=== PATIENT | female | born 1970 | race Two or more races ===

== ENCOUNTER 2025-03-28 00:38 | Emergency (ER) | payer OTHER, SELFPAY ==
[2025-03-28 00:40] VITALS: BMI 29.0
--- NOTE | 2025-03-28 00:40 | EKG_ITS ---
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
--- NOTE | 2025-03-28 00:44 | XR_ITS ---
Examination: PA lateral chest 2 views Technique: Upright PA lateral chest 2 views Date and time: March 28, 2025, 0117 hrs. Indications: Chest pain shortness of breath beginning 2 weeks ago Findings: Normal heart size. Lungs are clear. Osseous structures are intact. Impression: No active disease.
[2025-03-28 00:46] VITALS: BP 133/86; PULSE 70; RESP 18; TEMP 37.2; O2SAT 97
[2025-03-28 01:02] LABS: Collection Type, Urine Clean Catch
[2025-03-28 01:08] LABS: HCG Qualitative,Urine Negative
[2025-03-28 01:16] LABS: Bacteria,Urine Rare; Bilirubin,Urine Negative (Negative); Blood,Urine Negative (Negative); Clarity,Urine Clear (Clear/Hazy); Color,Urine Lt-Yellow (Lt Yel-Yel); Culture Indicated,Urine Not Indicated; Glucose, Urine Negative (Negative); Ketones,Urine Negative (Negative); Leukocyte Esterase,Urine Negative (Negative); Nitrite,Urine Negative (Negative); PH,Urine 5.5 (5.0-7.0); Protein,Urine Negative (Neg - Trace); RBC,Urine 1 /hpf (0-3); Specific Gravity,Urine 1.012 (1.001-1.035); Squamous Epithelial Cell,Urine 7 /hpf (0-5); Urobilinogen,Urine Negative mg/dL (0.0-1.0); WBC,Urine 2 /hpf (0-5)
[2025-03-28 01:35] LABS: Basophils # (Auto) 0.0 Thou/mm3 (0.0-0.2); Basophils % (Auto) 1 % (0-2.5); Eosinophils # (Auto) 0.1 Thou/mm3 (0.0-0.5); Eosinophils % (Auto) 3 % (0-10); Hematocrit 39.5 % (36.0-46.0); Hemoglobin 12.8 g/dL (12.0-16.0); Immature Granulocytes Auto 0.03 Thou/mm3 (0.00-0.00); Lymphocytes # (Auto) 1.4 Thou/mm3 (1.0-4.8); Lymphocytes % (Auto) 27 % (10-50); Mean Corpuscular HGB Conc 32.4 g/dl (31.0-37.0); Mean Corpuscular Hemoglobin 26.8 pg (25.0-35.0); Mean Corpuscular Volume 83 fL (80-100); Monocytes # (Auto) 0.5 Thou/mm3 (0.0-0.8); Monocytes % (Auto) 9 % (0-12); Neutrophils # (Auto) 3.2 Thou/mm3 (1.8-7.7); Neutrophils % (Auto) 61 % (37-80); Nucleated Red Blood Cell # 0.00 Thou/mm3 (0.00-0.00); Nucleated Red Blood Cell % 0 /100 WBC (0); Platelet Count 224 Thou/mm3 (140-440); RDW Standard Deviation 42.7 fL (36.4-46.3); Red Blood Count 4.77 Miln/mm3 (4.00-5.20); White Blood Count 5.2 Thou/mm3 (3.6-11.0)
--- NOTE | 2025-03-28 01:46 | EDRME_ITS ---
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 Patient denies URI symptoms. Chief Complaint: Chest Pain Vital signs: Vital Signs Temperature 98.9 F 03/28/25 00:46 Pulse Rate 70 03/28/25 00:46 Respiratory Rate 18 03/28/25 00:46 Blood Pressure 133/86 H 03/28/25 00:46 Pulse Oximetry (%) 97 03/28/25 00:46 Oxygen Delivery Method Room Air 03/28/25 00:46
[2025-03-28 01:53] LABS: B-Type Natriuretic Peptide < 20 pg/mL (0-100)
[2025-03-28 01:55] LABS: Alanine Aminotransferase 18 U/L (10-49); Albumin, Serum 4.2 gm/dL (3.5-5.0); Albumin/Globulin Ratio 1.7 (1.2-2.2); Alkaline Phosphatase 90 U/L (46-116); Anion Gap 11 (7-16); Aspartate Amino Transferase 29 U/L (0-34); BUN/Creatinine Ratio 14 Ratio (12-20); Bilirubin,Total 0.3 mg/dL (0.3-1.2); Blood Urea Nitrogen 11 mg/dL (9-23); Calcium 9.2 mg/dL (8.3-10.6); Calcium (Corrected) 9.2 mg/dL (8.5-10.1); Carbon Dioxide 26.1 mMol/L (20.0-31.0); Chloride 109 mMol/L (98-107); Creatinine (Component) 0.8 mg/dL (0.6-1.3); Estimated Creatinine Clearance 87.6 mL/min (>60); Globulin 2.5 gm/dL (2.3-3.5); Glucose 102 mg/dL (74-106); Lipase 60 U/L (12-53); Osmolality,Calculated 289 (275-295); Potassium 4.3 mMol/L (3.4-5.1); Sodium 146 mMol/L (136-145); Total Protein 6.7 gm/dL (5.7-8.2); Troponin I < 0.002 ng/mL (0.0-0.045); eGFR > 60 See Note
--- NOTE | 2025-03-28 03:52 | EDNOTE_ITS ---
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 Patient denies URI symptoms. Dr. Cazares?s Main ED Evaluation: 54yo female with a history of follicular lymphoma, HLD presents to the ED for a chief complaint of intermittent chest heaviness and shortness of breath for the last 2 weeks. No aggravating or alleviating factors. No radiation or migration of her pain. Patient denies any cough, fever, chills, or any other associated symptoms. NKA. Related Data Allergies Allergy/AdvReac Type Severity Reaction Status Date / Time No Known Allergies Allergy Verified 03/28/25 00:40 Review of Systems Review of Systems Systems Reviewed: All systems reviewed, normal except as documented ED Exam Narrative Physical exam: Generally the patient is alert and in no obvious distress, heart regular rate and rhythm, lungs clear to auscultation equal bilaterally, abdomen soft bowel sounds present nondistended nontender, neurologic exam no ataxia without focal d eficit. Essie Coma Scale is 15., Skin is warm pale and dry, extremities show no edema Course Course Course Narrative: CXR is ordered for determining the etiology of chest pain. Quality Measures none Orders Category Date Time Status EKG (ED ONLY) *Do not use* NOW Care 03/28/25 00:40 Completed EKG (ED Only) Stat Exams 03/28/25 00:40 Draft XR chest 2V Stat Exams 03/28/25 00:44 Taken BNP [B-Type Natriuretic Peptide] Stat Lab 03/28/25 01:18 Completed CBC Stat Lab 03/28/25 01:18 Completed CMP [Comprehensive Metabolic Panel] Stat Lab 03/28/25 01:18 Completed HCG Qualitative,Urine Stat Lab 03/28/25 00:55 Completed Lipase Stat Lab 03/28/25 01:18 Completed Troponin I Stat Lab 03/28/25 01:18 Completed Troponin I Stat Lab 03/28/25 03:36 Completed UA, C/S IF [Urinalysis, C/S if Indicated] Stat Lab 03/28/25 00:55 Completed Vital Signs Vital signs: Vital Signs Temperature 98.9 F 09/06/25 00:46 Pulse Rate 70 03/28/25 00:46 Respiratory Rate 18 03/28/25 00:46 Blood Pressure 133/86 H 03/28/25 00:46 Pulse Oximetry (%) 97 03/28/25 00:46 Oxygen Delivery Method Room Air 03/28/25 00:46 Chest Pain MDM Narrative MDM Narrative:: Scribe Attestation: 03/28/25 - Joanne Muñoz am scribing for and in the presence of Dr. Cazares. Differential diagnosis: Noncardiac chest pain, musculoskeletal pain, acute coronary syndrome I interpreted all labs. 2 separate troponins are not elevated. EKG is nonischemic. Chest x-ray is normal. Patient stable for discharge home to follow-up with primary care for further treatment and evaluation. Return to ER as needed or if condition worsens. Heart score is 1. Patient data External records reviewed:: [facility] previous records (Per chart review, patient has no previous ED visits or admissions to this facility.) Clinical information provided by:: patient Social determinants that could affect healthcare access:: none Patient has the following chronic illnesses:: follicular lymphoma, HLD How is presenting disease/condition affected by chronic disease/condition?: uneffected by Evaluation data The following diagnostics were reviewed and interpreted by me:: lab results, radiology exam(s) and EKG tracing(s) Lab and/or radiology exams considered but not ordered:: none Interpretation Summary: See MDM. Medications / Prescriptions Medications or Prescriptions considered but not ordered:: none Medication administrations:: none Consultations Consultation(s) initiated? (list below): No Diagnosis Chest Pain Differential Diagnosis: other (See MDM) Most likely diagnosis given after review of the tests above:: see clinical impression below Admission Indicated Admission indicated?: not indicated Admission Request Was there a request for admission?: No Disposition Plan Disposition Plan: Discharge Discharge Attestation Discharge Attestation: The patient and all family members were given an opportunity to ask questions and understood the discharge instructions. Discharge instructions specifically effects, indications for sooner follow up or return to the emergency department, and the expected course of current diagnosis. Patient condition: Stable Discharge Plan Plan Patient Disposition: HOME (Self Care) Prescriptions/Referrals Referrals: Adrian Jean MD [Primary Care Provider, Nephrology] - In 1 week Problem List Clinical Impression: Chest pain Patient/Caregiver Discharge Instructions Education Materials: ED Chest Pain, Uncertain Cause Additional Instructions: Follow-up with your doctor for further treatment and evaluation. Return to ER as needed or if condition worsens. Print Language: Mongolian Stand Alone Forms: [facility] Award Info., Patient Portal Info Letter
[2025-03-28 03:56] VITALS: BP 162/96; PULSE 82; RESP 84; O2SAT 100
[2025-03-28 04:01] LABS: Troponin I < 0.002 ng/mL (0.0-0.045)
== END 2025-03-28 04:10 | disposition home or self-care (01) ==
PROVIDERS: Emergency Provider Emergency Medicine; PCP Internal Medicine
DX: R07.9 Chest pain, unspecified (principal); R06.02 Shortness of breath; Z85.72 Personal history of non-Hodgkin lymphomas
CPT/HCPCS: 36415; 71046; 80053; 81001; 81025; 83690; 83880; 84484; 85025; 93005; 99283

== ENCOUNTER → 2025-04-14 | Outpatient (CLI) | payer OTHER, SELFPAY ==
[2025-04-14 12:07] LABS: Basophils # (Auto) 0.1 Thou/mm3 (0.0-0.2); Basophils % (Auto) 1 % (0-2.5); Eosinophils # (Auto) 0.1 Thou/mm3 (0.0-0.5); Eosinophils % (Auto) 2 % (0-10); Hematocrit 40.2 % (36.0-46.0); Hemoglobin 12.8 g/dL (12.0-16.0); Immature Granulocytes Auto 0.03 Thou/mm3 (0.00-0.00); Lymphocytes # (Auto) 1.2 Thou/mm3 (1.0-4.8); Lymphocytes % (Auto) 23 % (10-50); Mean Corpuscular HGB Conc 31.8 g/dl (31.0-37.0); Mean Corpuscular Hemoglobin 26.7 pg (25.0-35.0); Mean Corpuscular Volume 84 fL (80-100); Monocytes # (Auto) 0.4 Thou/mm3 (0.0-0.8); Monocytes % (Auto) 7 % (0-12); Neutrophils # (Auto) 3.7 Thou/mm3 (1.8-7.7); Neutrophils % (Auto) 67 % (37-80); Nucleated Red Blood Cell # 0.00 Thou/mm3 (0.00-0.00); Nucleated Red Blood Cell % 0 /100 WBC (0); Platelet Count 238 Thou/mm3 (140-440); RDW Standard Deviation 42.3 fL (36.4-46.3); Red Blood Count 4.80 Miln/mm3 (4.00-5.20); White Blood Count 5.5 Thou/mm3 (3.6-11.0)
[2025-04-14 12:27] LABS: Cardiac Risk Estimate 3.6 RATIO (3.7-5.6); Cholesterol 153 mg/dL (132-200); HDL Cholesterol 42 mg/dL (40-60); LDL Cholesterol,Calculated 90 mg/dL (0-130); Thyroid Stimulating Hormone 5.73 uIU/mL (0.55-4.78); Triglycerides 106 mg/dL (30-150)
== END | disposition home or self-care (01) ==
LOC: COPL 11:19
PROVIDERS: PCP Internal Medicine; Referring Provider Internal Medicine; Visit Provider Internal Medicine
DX: E78.5 Hyperlipidemia, unspecified (principal)
CPT/HCPCS: 36415; 80061; 84443; 85025

== ENCOUNTER → 2025-04-27 | Outpatient (CLI) | payer OTHER, SELFPAY ==
--- NOTE | 2025-04-27 13:45 | XR_ITS ---
Examination: Screening digital mammography, bilateral Computer aided detection 3-D breast Tomosynthesis, bilateral Date and time of exam: April 27, thousand 25, 1356 hours, no priors, Indication: Screening Technique: Nonmagnified MLO, CC views of the breasts to been obtained, reconstructed from 3-D Tomosynthesis images. R2 computer aided detection program utilized for evaluation of suspicious masses and/or abnormal calcifications. 3-D Tomosynthesis images obtained. Findings: The breasts are heterogeneously dense, which may obscure small masses 14 mm nodule upper outer right breast posterior depth Impression: BI-RADS Category 0: Incomplete: Need additional imaging evaluation Recommend follow-up spot tomographic views of 14 mm nodule upper outer right breast as well as bilateral breast sonography to complete the workup..
== END | disposition home or self-care (01) ==
LOC: CDIM 13:31
PROVIDERS: PCP Internal Medicine; Referring Provider Internal Medicine; Visit Provider Internal Medicine
DX: Z12.31 Encounter for screening mammogram for malignant neoplasm of breast (principal); N63.11 Unspecified lump in the right breast, upper outer quadrant; R92.8 Other abnormal and inconclusive findings on diagnostic imaging of breast
CPT/HCPCS: 77063; 77067

== ENCOUNTER → 2025-05-26 | Outpatient (CLI) | payer OTHER, SELFPAY ==
--- NOTE | 2025-05-26 11:00 | XR_ITS ---
Examination: Transvaginal ultrasound of the pelvis, complete Technique: Transvaginal sonographic images pelvis performed using boyd scale imaging Exam date and time: May 26, 2025, 1102 hours INDICATIONS: Postmenopausal bleeding episodes beginning 3 days ago. FINDINGS: Uterus 6.1 cm uterine fundal area fibroid degeneration 8 x 5 x 9 mm Endometrial stripe 0.3 cm Right ovary 2.2 cm arterial flow Left ovary 2.5 cm arterial flow IMPRESSION: Small area of uterine fibroid degeneration 8 x 5 x 9 mm Endometrial site 0.3 cm If postmenopausal bleeding persists, consider MRI pelvis pre and post contrast follow-up.
[2025-05-26 12:23] LABS: Collection Type, Urine Clean Catch
[2025-05-26 13:56] LABS: Basophils # (Auto) 0.0 Thou/mm3 (0.0-0.2); Basophils % (Auto) 1 % (0-2.5); Eosinophils # (Auto) 0.1 Thou/mm3 (0.0-0.5); Eosinophils % (Auto) 2 % (0-10); Hematocrit 40.7 % (36.0-46.0); Hemoglobin 13.0 g/dL (12.0-16.0); Immature Granulocytes Auto 0.03 Thou/mm3 (0.00-0.00); Lymphocytes # (Auto) 1.6 Thou/mm3 (1.0-4.8); Lymphocytes % (Auto) 26 % (10-50); Mean Corpuscular HGB Conc 31.9 g/dl (31.0-37.0); Mean Corpuscular Hemoglobin 26.1 pg (25.0-35.0); Mean Corpuscular Volume 82 fL (80-100); Monocytes # (Auto) 0.3 Thou/mm3 (0.0-0.8); Monocytes % (Auto) 6 % (0-12); Neutrophils # (Auto) 3.9 Thou/mm3 (1.8-7.7); Neutrophils % (Auto) 65 % (37-80); Nucleated Red Blood Cell # 0.00 Thou/mm3 (0.00-0.00); Nucleated Red Blood Cell % 0 /100 WBC (0); Platelet Count 249 Thou/mm3 (140-440); RDW Standard Deviation 39.9 fL (36.4-46.3); Red Blood Count 4.99 Miln/mm3 (4.00-5.20); White Blood Count 6.0 Thou/mm3 (3.6-11.0)
[2025-05-26 14:02] LABS: Bacteria,Urine Rare; Bilirubin,Urine Negative (Negative); Blood,Urine Negative (Negative); Clarity,Urine Clear (Clear/Hazy); Color,Urine Lt-Yellow (Lt Yel-Yel); Glucose, Urine Negative (Negative); Ketones,Urine Negative (Negative); Leukocyte Esterase,Urine Positive (Negative); Nitrite,Urine Negative (Negative); PH,Urine 5.5 (5.0-7.0); Protein,Urine Negative (Neg - Trace); RBC,Urine 2 /hpf (0-3); Specific Gravity,Urine 1.016 (1.001-1.035); Squamous Epithelial Cell,Urine 16 /hpf (0-5); Urobilinogen,Urine Negative mg/dL (0.0-1.0); WBC,Urine 4 /hpf (0-5)
[2025-05-26 14:15] LABS: Alanine Aminotransferase 11 U/L (10-49); Albumin, Serum 4.5 gm/dL (3.5-5.0); Albumin/Globulin Ratio 2.0 (1.2-2.2); Alkaline Phosphatase 90 U/L (46-116); Anion Gap 9 (7-16); Aspartate Amino Transferase 18 U/L (0-34); BUN/Creatinine Ratio 13 Ratio (12-20); Bilirubin,Total 0.4 mg/dL (0.3-1.2); Blood Urea Nitrogen 10 mg/dL (9-23); Calcium 9.4 mg/dL (8.3-10.6); Calcium (Corrected) 9.4 mg/dL (8.5-10.1); Carbon Dioxide 26.2 mMol/L (20.0-31.0); Cardiac Risk Estimate 3.9 RATIO (3.7-5.6); Chloride 109 mMol/L (98-107); Cholesterol 146 mg/dL (132-200); Creatinine (Component) 0.8 mg/dL (0.6-1.3); Globulin 2.2 gm/dL (2.3-3.5); Glucose 94 mg/dL (74-106); HDL Cholesterol 37 mg/dL (40-60); LDL Cholesterol,Calculated 82 mg/dL (0-130); Osmolality,Calculated 285 (275-295); Potassium 4.2 mMol/L (3.4-5.1); Sodium 144 mMol/L (136-145); Thyroid Stimulating Hormone 1.74 uIU/mL (0.55-4.78); Total Protein 6.7 gm/dL (5.7-8.2); Triglycerides 135 mg/dL (30-150); eGFR > 60 See Note
== END | disposition home or self-care (01) ==
LOC: CDIM 12:01 → COPL 12:04
PROVIDERS: PCP Internal Medicine; Referring Provider Internal Medicine; Visit Provider Radiology Diagnostic Radiology
DX: N85.8 Other specified noninflammatory disorders of uterus (principal); E03.9 Hypothyroidism, unspecified; E78.5 Hyperlipidemia, unspecified
CPT/HCPCS: 36415; 76830; 80053; 80061; 81001; 84443; 85025

== ENCOUNTER → 2025-05-27 | Outpatient (CLI) | payer OTHER, SELFPAY ==
--- NOTE | 2025-05-27 09:00 | XR_ITS ---
Examination: Breast ultrasound complete, bilateral Date and time of exam: May 27, 2025, 0925 hours INDICATION: Right breast pain beginning 1 week ago Technique: Real-time grayscale ultrasonographic imaging bilateral breasts, including all 4 quadrants as well as nipple retroareolar and axillary regions. Findings: Sonographic images right breast 11:00 nodule lobular circumscribed margins 11 x 11 mm Sonographic images left breast 12:00 cyst 10 x 8 mm 2:00 nodule circumscribed 5 x 5 mm 4:00 nodule circumscribed 6 x 6 mm 8:00 nodule circumscribed 9 x 14 mm IMPRESSION: BI-RADS Category 3: Probably benign findings Continued 6-month bilateral breast sonography follow-up needed to document stability of nodules described above
--- NOTE | 2025-05-27 10:00 | XR_ITS ---
Examination: Diagnostic digital mammography, unilateral, right Computer aided detection 3-D breast Tomosynthesis, unilateral Date and time of exam: 05/27/2025, 9:16 a.m. Comparisons: 04/27/2025 Indications: Further evaluation of upper outer quadrant abnormality seen on prior screening exam. Technique: Nonmagnified MLO, CC views of the right breast have been obtained, reconstructed from 3-D Tomosynthesis images. R2 computer aided detection program utilized for evaluation of suspicious masses and/or abnormal calcifications. 3-D Tomosynthesis images obtained. Technologist: Findings: The breasts are heterogeneously dense, which may obscure small masses. Previously described abnormality does not persist on spot compression views and represents superposition of normal fibroglandular tissue. No evidence of abnormal masses or suspicious calcifications. Impression: BI-RADS category 1: Negative findings (within normal) Recommend 1 year follow-up mammogram
== END | disposition home or self-care (01) ==
PROVIDERS: PCP Internal Medicine; Referring Provider Internal Medicine; Visit Provider Internal Medicine
DX: R92.311 Mammographic fatty tissue density, right breast (principal); N63.21 Unspecified lump in the left breast, upper outer quadrant; N63.11 Unspecified lump in the right breast, upper outer quadrant; N63.24 Unspecified lump in the left breast, lower inner quadrant; N63.23 Unspecified lump in the left breast, lower outer quadrant
CPT/HCPCS: 76641; 77061; 77065; G0279

== ENCOUNTER 2025-06-10 09:47 | Outpatient (RCR) | payer OTHER, SELFPAY ==
--- NOTE | 2025-06-10 13:17 | CTCCONSULT_ITS ---
Patient: EVE WAITE : 1970 MR#: [id number] Page 2 of 2 CONSULTATION NOTE DATE OF CONSULTATION: 06/10/2025 NAME: EVE WAITE ACCOUNT: [id number] : 1970 AGE: 54 REFERRING PHYSICIAN: Adrian Jean MD PRIMARY PHYSICIAN: REASON FOR VISIT: Follicular lymphoma grade 2 ONCOLOGY HISTORY: DIAGNOSIS: Follicular lymphoma DATE OF DIAGNOSIS: 07/25/2023 STAGE/TNM: Grade 2 multiple lymph node sites on 1 side of diaphragm no involvement of spleen or lliver TREATMENT HISTORY: Care Plan Name Start Date Cycle Day Intent HISTORY OF PRESENT ILLNESS: 54-year-old female was being seen at [facility] in [facility]. Patient at that time was seen with history of thyroid cancer in 2005 status post thyroidectomy and MCELROY currently on levothyroxine prediabetes dyslipidemia and obesity. Patient was seen in the emergency room in June 2023 for complaints of abdominal pain and loose bowel movements patient underwent CT scan which showed evidence of 3 x 9 x 10 cm right lower quadrant soft tissue mass possibly conglomerate adenopathy additional small bowel mesenteric adenopathy was noted. Biopsy was completed which showed follicular low-grade lymphoma 08/07/[address] scan showed moderate to marked increased metabolic activity in diffuse intra-abdominal retroperitoneal pelvic lymphadenopathy no evidence of lymphoma about the diaphragm 09/23/[address] scan shows mild progression of lymphoma below the diaphragm and diffuse abdominal intra-abdominal retroperitoneal pelvic and mesenteric lymph nodes as compared to previous exam on 08/02/2023 no evidence of lymphoma involvement above the diaphragm no involvement of liver or spleen Deauville score is 5 CT-guided biopsy of the abdominal mass 07/25/2023 consistent with grade 1 and 2-3 follicular lymphoma with Ki-67 proliferation index of 5 to 10% OTHER MEDICAL HISTORY/CONDITIONS: Follicular Lymphoma - 2022 Hyperlipidemia Right breast cyst - since 2020 Thyroidectomy?-?2006 FAMILY HISTORY: Mother:?Uterine?-?dx?62 Cancer History:?Mat grandma - unknown; Mat cousin - breast-dx 50 SOCIAL HISTORY: 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 Tobacco?Use:?Denies ETOH?Use:?Denies Drug?Note:?Denies Social?History?Note:?Lives?wtih? 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 None Medications Last Reconciled by Ericka Turner RN on 06/10/2025 ALLERGIES: No Known Drug Allergies REVIEW OF SYSTEMS: A complete 14-point review of systems was performed and is negative except as noted in interval history. PHYSICAL EXAMINATION: VITAL SIGNS: B/P?152/92, Height?66?inches, Oxygen?Saturation?97% Weight?184?lbs PAIN: 2 - Mild pain ECOG Performance Status: 0 - Asymptomatic and fully active GENERAL APPEARANCE: Appears well, in no apparent distress, appropriately interactive. HEENT: Normocephalic, no temporal wasting, normal conjunctiva, no scleral icterus, normal hearing, lips without lesions, neck normal range of motion. CARDIOVASCULAR: Not assessed. PULMONARY: Normal respiratory effort, no respiratory distress or use of accessory muscles, speaking in full sentences, no tachypnea. EXTREMITIES: No pedal edema or cyanosis. SKIN: Normal skin appearance. NEUROLOGIC: Alert and oriented x4. PSHYCHIATRIC: Appropriate affect, mood normal, behavior normal, intact thought and speech. LABORATORY DATA: I have personally reviewed and interpreted each of the patient?s relevant lab tests, abnormal findings are below: Date Time ASSESSMENT/PLAN: Follicular lymphoma grade 2 multiple lymph nodes Large lymph node was 10 cm on the previous CT scans in the right lower quadrant of the abdomen Patient recently had colonoscopy and was negative Patient does complain of some dysphagia so we will send for EGD Patient do not have night sweats or other B symptoms like appetite changes or weight loss No abdominal symptoms Discussed with Ms. Waite starting treatment and symptomatic patients is recommended in follicular lymphoma We can do wait and watch until patient become symptomatic and patient agreed RTC in 6 months with imaging and labs ORDERS: Order # Description [id number] Uric Acid, Serum + Comprehensive Metabolic Panel - 12 + CBC with Auto Diff + Hep A, B and C panel [id number] Lactate Dehydrogenase (LDH) [id number] RETURN TO CLINIC: I reviewed the diagnosis, prognosis, and recommended treatment/procedure options with the patient (and/or their legal personnel representative), including the potential benefits, risks, side effects and alternative therapies. We also discussed the option of no treatment and the possibility of clinical trial participation, if applicable. All questions were addressed, and they demonstrated understanding. They provided informed consent to proceed with the proposed plan of care. BILLING AND COMPLIANCE: I reviewed external records from providers outside my specialty as summarized above. I spent a total of 50 minutes on this patient?s care on the day of their visit excluding time spent related to any billed procedures. This time includes time spent with the patient as well as time spent documenting in the medical record, reviewing patients records and tests, obtaining history, placing orders, communicating with other healthcare professionals, counseling the patient, family or caregiver, and/or care coordination for the diagnoses above. Electronically Signed by: Smith Mercado MD T: 1:14 PM CC: PCP: Referring: Adrian Jean This document was completed utilizing speech recognition software. Grammatical errors, random word insertions, pronoun errors, and incomplete sentences are an occasional consequence of this system due to software limitations, ambient noise, and hardware issues. Any formal questions or concerns about the content, text or information contained within the body of this dictation should be directly addressed to the provider for clarification.
== END 2025-06-21 23:59 | disposition home or self-care (01) ==
LOC: SCTC 09:47
PROVIDERS: PCP Internal Medicine; Referring Provider Internal Medicine; Visit Provider Internal Medicine Hematology & Oncology
DX: C82.13 Follicular lymphoma grade II, intra-abdominal lymph nodes (principal)
CPT/HCPCS: 99213; G0463